=== PATIENT | female | born 1965 | race Caucasian/White ===

== ENCOUNTER 2023-06-25 10:22 | Outpatient (CLI) | payer OTHER | END 2023-06-25 10:23 | disposition home or self-care (01) | LOC: CSHMRI 10:22 | PROVIDERS: ATTEND Neurological Surgery | DX: C71.9 Malignant neoplasm of brain, unspecified (principal); Z98.890 Other specified postprocedural states; G93.89 Other specified disorders of brain | CPT/HCPCS: 70553 ==

== ENCOUNTER 2023-08-08 13:06 | Outpatient (CLI) | payer OTHER | END 2023-08-08 13:07 | disposition home or self-care (01) | LOC: CSHMRI 13:06 | PROVIDERS: ATTEND Orthopaedic Surgery Hand Surgery | DX: M79.644 Pain in right finger(s) (principal); Z98.890 Other specified postprocedural states; M79.89 Other specified soft tissue disorders ==

== ENCOUNTER 2025-06-02 12:38 | Outpatient (CLI) | payer BC ==
[2025-06-02 13:13] LABS: Estimated GFR - POC 84.0
== END 2025-06-02 12:39 | disposition home or self-care (01) ==
LOC: CSHMRI 12:38
PROVIDERS: ATTEND Neurological Surgery
DX: D49.6 Neoplasm of unspecified behavior of brain (principal); Z98.890 Other specified postprocedural states
CPT/HCPCS: 36415; 70553; 76376; 82565